=== PATIENT | female | born 1985 | race Caucasian/White ===

== ENCOUNTER 2018-10-26 10:53 | Outpatient (CLI) | payer OTHER ==
[~2018-10-26 10:53] MED LIST: IRON1 TAB PO; PRENATAL CAPLE1 EACH PO; VALTREX1000 MG PO
== END 2018-10-26 11:52 | disposition home or self-care (01) ==
LOC: NST 10:53
DX: Z34.83 Encounter for supervision of other normal pregnancy, third trimester (principal)

== ENCOUNTER 2018-11-02 03:57 | Inpatient (IN) | payer OTHER ==
[~2018-11-02] VITALS: Ht 167.6 cm; Wt 170.0 kg
== END 2018-11-03 09:13 | disposition home or self-care (01) | DRG 833 ==
LOC: OBS/DEL 03:57 → OB/GYN 05:45 → LDR 05:45 → OB/GYN 18:55
PROVIDERS: ADMIT Obstetrics & Gynecology Maternal & Fetal Medicine
PROC: 4A1HXCZ Monitoring of Products of Conception, Cardiac Rate, External Approach (ICD-10-PCS; principal; 2018-11-02)
DX: O21.8 Other vomiting complicating pregnancy (principal); Z34.83 Encounter for supervision of other normal pregnancy, third trimester

== ENCOUNTER 2018-11-12 11:03 | Outpatient (CLI) | payer OTHER | END 2018-11-12 11:10 | disposition home or self-care (01) | LOC: LAB 11:03 | DX: D68.0 Von Willebrand disease (principal) ==

== ENCOUNTER 2018-11-26 15:17 | Inpatient (IN) | payer OTHER ==
[~2018-11-26] VITALS: Ht 167.6 cm; Wt 77.6 kg
== END 2018-11-29 10:15 | disposition home or self-care (01) | DRG 788 ==
LOC: SURG-SUITE 15:17 → LDR 15:17 → SURG-SUITE 17:39 → OB/GYN 12-03 11:42
PROVIDERS: ADMIT Obstetrics & Gynecology
PROC: 4A1HXCZ Monitoring of Products of Conception, Cardiac Rate, External Approach (ICD-10-PCS; 2018-11-26)
PROC: 10D00Z1 Extraction of Products of Conception, Low, Open Approach (ICD-10-PCS; principal; 2018-11-26 15:30)
DX: O82 Encounter for cesarean delivery without indication (principal); O64.1XX0 Obstructed labor due to breech presentation, not applicable or unspecified; Z3A.38 38 weeks gestation of pregnancy; Z37.0 Single live birth

== ENCOUNTER 2022-10-30 10:30 | Outpatient (CLI) | payer OTHER | END 2022-10-30 10:46 | disposition home or self-care (01) | LOC: MAMO-SONO 10:30 | PROVIDERS: ATTEND Obstetrics & Gynecology | DX: N60.11 Diffuse cystic mastopathy of right breast (principal); Z12.31 Encounter for screening mammogram for malignant neoplasm of breast ==

== ENCOUNTER 2024-06-16 08:47 | Outpatient (CLI) | payer OTHER | END 2024-06-16 08:56 | disposition home or self-care (01) | LOC: MAMO-SONO 08:47 | PROVIDERS: ATTEND Obstetrics & Gynecology | DX: N60.11 Diffuse cystic mastopathy of right breast (principal) ==